=== PATIENT | female | born 1935 | race Caucasian/White ===

== ENCOUNTER → 2020-05-24 | Outpatient (CLI) | payer MEDICARE | END | disposition home or self-care (01) | LOC: LABWHC1 09:31 | PROVIDERS: ATTEND Internal Medicine | DX: Z20.828 Contact with and (suspected) exposure to other viral communicable diseases (principal) | CPT/HCPCS: U0003; C9803 ==

== ENCOUNTER → 2020-09-07 | Outpatient (CLI) | payer MEDICARE ==
--- NOTE | 2020-09-07 14:10 | CT ---
EXAMINATION TYPE: CT abdomen pelvis w con DATE OF EXAM: 09/07/2020 HISTORY: left flank pain CT DLP: 660mGycm Automated Exposure Control for Dose Reduction was Utilized. CONTRAST: CT scan of the abdomen and pelvis is performed with IV Contrast, patient injected with 80 mL of Isovu e 300. COMPARISON: None. FINDINGS: LUNG BASES: No significant abnormality is appreciated. LIVER/GB: No significant abnormality is appreciated. PANCREAS: No significant abnormality is seen. SPLEEN: No significant abnormality is seen. ADRENALS: No significant abnormality is seen. KIDNEYS: Cortical thinning in both kidneys with scattered simple-appearing thin-walled cysts of varyi ng size and shape. Findings consistent with product of chronic medical renal disease. No hydronephros is noted bilaterally. Mild to moderate concentric wall thickening in the bladder. Early excretion of contrast makes evaluation for calculi suboptimal. Patient had extravasation accounting for findings. BOWEL: Oral contrast reaches level of the sigmoid rectal colon. No suspicious small or large bowel di latation. UTERUS/ADNEXA: Uterus surgically absent. LYMPH NODES: No greater than 1cm abdominal or pelvic lymph nodes are appreciated. OSSEOUS STRUCTURES: Severe sclerotic compression fracture Involving T11 vertebra. Cannot exclude path ologic fracture given this finding, correlate clinically. No significant posterior retropulsion noted . Mild height loss with vertebroplasty L5 vertebra. OTHER: Moderate calcified plaque of the aorta extends into branch vessels. IMPRESSION: No hydronephrosis seen bilaterally. Possible acute cystitis, correlate clinically. Attent ion to T11 vertebra as detailed above.
== END | disposition home or self-care (01) ==
LOC: RADCTMAIN 11:08
PROVIDERS: ATTEND Internal Medicine
DX: R10.9 Unspecified abdominal pain (principal)
CPT/HCPCS: 82565; 84520; 74177; 36415; Q9967

== ENCOUNTER → 2021-04-25 | Outpatient (CLI) | payer MEDICARE ==
--- NOTE | 2021-04-26 07:35 | CT ---
EXAMINATION TYPE: CT abdomen wo con, CT abdomen pelvis w con DATE OF EXAM: 04/25/2021 HISTORY: Diarrhea and 32lb weight loss over past [address] DLP: 284.5 (accession [id number]), 724.1 (accession [id number]) mGycm. Automated Exposure Control for Dose Reduction was Utilized. TECHNIQUE: CT scan abdomen with oral but without IV contrast. CT scan of the abdomen and pelvis is p erformed with oral and IV contrast. Patient injected with 80 cc of Isovue-300 for the study. COMPARISON: CT abdomen and pelvis September 07, 2020 FINDINGS: LUNG BASES: No significant abnormality is appreciated. LIVER/GB: No new biliary dilatation. PANCREAS: No significant abnormality is seen. SPLEEN: No significant abnormality is seen. ADRENALS: No significant abnormality is seen. KIDNEYS: Noncontrast images show no renal calculi bilaterally. Postcontrast images show symmetric cor ticomedullary uptake and excretion without hydronephrosis seen bilaterally. There is redemonstration of some cortical thinning with a few scattered simple-appearing thin-walled cysts bilaterally, larges t cyst is exophytically from upper pole level left kidney measuring 4.9 cm similar to the prior. BOWEL: The oral contrast reaches level of terminal ileum making evaluation of distal bowel slightly s uboptimal. No suspicious small or large bowel dilatation. A few distal colonic diverticula. No CT christiano dence for acute diverticulitis. Multiple air-fluid levels and abnormal fluid in the right and transve rse colon. GENITAL ORGANS: Uterus surgically absent or markedly atrophic.. LYMPH NODES: No greater than 1cm abdominal or pelvic lymph nodes are appreciated. OSSEOUS STRUCTURES: Vertebroplasty at L5 level redemonstrated. Osseous structures are demineralized. Advanced compression type fracture at T11 level with sclerosis redemonstrated. Slight posterior retro pulsion into anterior spinal canal sagittal image 60 series 15 redemonstrated. OTHER: Moderate to severe calcified plaque of the aorta extends into branch vessels. IMPRESSION: 1. Abnormal fluid in the right and transverse colon consistent with patient's reported history of arnaud rrhea. 2. No suspicious new mass or adenopathy to suggest neoplasm.
== END | disposition home or self-care (01) ==
LOC: RADCTMAIN 15:43
PROVIDERS: ATTEND Internal Medicine
DX: R10.84 Generalized abdominal pain (principal); R63.4 Abnormal weight loss
CPT/HCPCS: 82565; 84520; 74150; 74177; 36415; Q9967 ×2

== ENCOUNTER 2021-11-30 13:50 | Inpatient (IN) | payer MEDICARE ==
[2021-11-30] MEDS ORDERED: DIPH,PERTUS(ACELL)TETVAC-LF 0.5 ML VIAL IM ONE (13:58)
[2021-11-30] MEDS ORDERED: LIDOCAINE 1% INJ 10MG/ML (5 ML VIAL-PF) SQ ONE (13:58)
[2021-11-30] MEDS ORDERED: KETOROLAC 15 MG/ML 1 ML VIAL IVP STA (14:02)
--- NOTE | 2021-11-30 14:02 | ED ---
General Adult HPI <Abraham Harrington - Last Filed: 11/30/21 14:59> - General Source: patient, RN notes reviewed, old records reviewed <Torito Turner - Last Filed: 11/30/21 16:52> - General Stated complaint: Fall/hip pain Time Seen by Provider: 11/30/21 13:50 - History of Present Illness Initial comments: This is an 86-year-old female who states she was about to go up some steps and she turned to do that and she fell over onto her left side. Patient states she hit her head but did not lose consciousness and was not dazed. Patient states she has chronic neck pain but she doesn't believe she has any new neck pain. Patient also states she hit her elbow but it does not hurt but she did have some bleeding from the elbow. Patient complains mostly of right lateral hip and pe lvis pain. Patient denies any knee pain or ankle pain and denies any other pain to any other extremity. Patient denies any back pain or chest pain (Torito Turner) - Related Data Home Medications Medication Instructions Recorded Confirmed Aspirin EC [Ecotrin Low Dose] 81 mg PO DAILY 11/30/21 11/30/21 Calcium Carbonate [Calcium] 600 mg PO DAILY 11/30/21 11/30/21 Cholecalciferol [Vitamin D3 (25 25 mcg PO DAILY 11/30/21 11/30/21 Mcg = 1000 Iu)] Diphenox-Atrop 2.5-0.025 mg 1 tab PO BID PRN 11/30/21 11/30/21 [Lomotil] HYDROcodone/APAP 10-325MG [[place] 1 tab PO Q8HR PRN 11/30/21 11/30/21 10-325] Isosorbide Mononitrate ER [Imdur] 30 mg PO DAILY 11/30/21 11/30/21 Losartan Potassium [Cozaar] 12.5 mg PO DAILY 11/30/21 11/30/21 Omeprazole 20 mg PO DAILY 11/30/21 11/30/21 Sertraline [Zoloft] 50 mg PO DAILY 11/30/21 11/30/21 Simvastatin [Zocor] 20 mg PO HS 11/30/21 11/30/21 amLODIPine [Norvasc] 10 mg PO DAILY 11/30/21 11/30/21 calcium polycarbophiL [Fibercon] 625 mg PO BID PRN 11/30/21 11/30/21 Allergies Allergy/AdvReac Type Severity Reaction Status Date / Time No Known Allergies Allergy Verified 11/30/21 15:56 Review of Systems ROS Other: All systems not noted in ROS Statement are negative. <Abraham Harrington - Last Filed: 11/30/21 14:59> ROS Other: All systems not noted in ROS Statement are negative. <Torito Turner - Last Filed: 11/30/21 16:52> ROS Statement: Those systems with pertinent positive or pertinent negative responses have been documented in the HPI. General Exam <Torito Turner - Last Filed: 11/30/21 16:52> - General Exam Comments Initial Comments: GENERAL: Patient is well-developed and well-nourished. Patient is nontoxic and well-hydrated and is in mild distress. Patient has mild tenderness to the temporal region of his scalp on the left ENT: Neck is soft and supple. No significant lymphadenopathy is noted. Oropharynx is clear. Moist mucous membranes. Neck has full range of motion without eliciting any pain. EYES: The sclera were anicteric and conjunctiva were pink and moist. Extraocular movements were intact and pupils were equal round and reactive to light. Eyelids were unremarkable. PULMONARY: Unlabored respirations. Good breath sounds bilaterally. No audible rales rhonchi or wheezing was noted. CARDIOVASCULAR: There is a regular rate and rhythm without any murmurs gallops or rubs. ABDOMEN: Soft and nontender with normal bowel sounds. SKIN: Patient has a 3 center laceration to the back of the left elbow. NEUROLOGIC: Patient is alert and oriented x3. Cranial nerves II through XII are grossly intact. Motor and sensory are also intact. Normal speech, volume and content. Symmetrical smile. MUSCULOSKELETAL: Patient is quite a bit of pain in the lateral aspect of the left hip patient has no spinous process tenderness in the lumbar or thoracic regions. LYMPHATICS: No significant lymphadenopathy is noted PSYCHIATRIC: Normal psychiatric evaluation. (Torito Turner) Course Vital Signs 11/30/21 11/30/21 11/30/21 13:55 14:10 16:44 Temperature 97.8 F Pulse Rate 86 83 58 L Respiratory 18 18 18 Rate Blood Pressure 157/63 142/60 153/43 O2 Sat by Pulse 98 96 95 Oximetry Procedures - Laceration Laceration #1 Consent Obtained: verbal consent Indication: laceration Site: upper extremity (elbow left) Size (cm): 3 Description: linear Depth: simple, single layer Anesthetic Used: lidocaine 1% Anesthesia Technique: local infiltration Pre-repair: irrigated extensively Type of Sutures: nylon Size of Sutures: 4-0 Number of Sutures: 5 Technique: simple, interrupted Patient Tolerated Procedure: well, no complications <Abraham Harrington - Last Filed: 11/30/21 14:59> Medical Decision Making <Torito Turner - Last Filed: 11/30/21 16:52> - Medical Decision Making CT of the head and neck show no acute abnormality. X-ray of the pelvis shows a pubic rami fracture. CT of the hip was done because the patient was unable to ambulate initially pubic rim or fracture as well as ischial fracture that may extend the acetabulum I [facility] with [facility] and she agreed to admit the patient admitted the patient wrote admitting orders. (Torito Turner) Disposition <Abraham Harrington - Last Filed: 11/30/21 14:59> Time of Disposition: 16:52 <Torito Turner - Last Filed: 11/30/21 16:52> Clinical Impression: Left ischial fracture, Pubic ramus fracture, Fall Disposition: ADMITTED IP TO THIS HOSP Referrals: Cindy Berg MD [Primary Care Provider] - 1-2 days
--- NOTE | 2021-11-30 14:32 | XR ---
Left hip HISTORY: Trauma and pain 2 views the left hip There is a fracture through the inferior pubic ramus on the left and possibly on the right. Bone mine ralization is low and may reduce sensitivity. Vertebroplasty changes noted in the lower lumbar spine. Left hip shows no definite fracture, there is no dislocation. IMPRESSION: Pubic rami fractures suspected. Technique somewhat limits the exam.
--- NOTE | 2021-11-30 15:02 | CT ---
EXAMINATION TYPE: CT brain kehindeine wo con DATE OF EXAM: 11/30/2021 COMPARISON: None HISTORY: fall CT DLP: 1469.7 mGycm, Automated exposure control for dose reduction was used. CONTRAST: None CT of the brain is performed utilizing 3 mm thick sections through the posterior fossa and 3 mm thick sections through the remaining calvarium. Study is performed within 24 hours of arrival to the hospital. No abnormal hyperdensity is present to suggest an acute intracranial hemorrhage. No mass lesion is evident. No acute infarcts are evident. There is confluent periventricular white matter hypodensity, likely o n the basis of chronic white matter ischemic changes. Follow-up MRI can be performed as clinically in dicated. Ventricles and sulci are appropriate for the patient age. Paranasal sinuses and mastoid air cells within the [id number] are clear. IMPRESSIONS: 1. Acute posttraumatic intracranial changes. MRI can be performed as clinically indicated. 2. Chronic appearing confluent periventricular white matter ischemic changes. CT cervical spine. COMPARISON: None CT of the cervical spine is performed in the axial plane at 2 mm thick sections. Reconstructed image s in the coronal, and sagittal plane are reviewed on the computer. No acute fractures are evident. Vertebral body alignment is normal. There is loss of disc height throughout the cervical spine greatest at C3-4 C5-6 and C6-7. Anterior v ertebral body spurring is present C5 and C6. Minimal anterior listhesis of C3 on C4 may be present. Vertebral body heights are preserved. No spinal canal stenosis is evident. No neural foraminal stenosis is evident. IMPRESSIONS: 1. Degenerative disc changes cervical spine.
--- NOTE | 2021-11-30 16:29 | CT ---
EXAMINATION TYPE: CT hip LT wo con DATE OF EXAM: 11/30/2021 COMPARISON: None HISTORY: left hip pain following fall CT DLP: 543.1 mGycm Automated exposure control for dose reduction was used. Contrast: None Technique: Axial images 3 mm thick sections. Reconstructed images in the coronal and sagittal planes. FINDINGS: Left hip: Femoral head articulates with the acetabulum. Femoral neck and proximal left femur appear i ntact. Multiple pelvic fractures are evident. There is likely a fracture through the anterior column. There may be a extension into the acetabulum. Example image 201 image 26. Within the [id number] is a fr acture of the medial left ischio ramus. This is better visualized on the coronal plane images there i s a comminuted fracture of the mid to medial pubic ramus. This appears comminuted. IMPRESSION: 1. MULTIPLE ISCHIAL AND PUBIC RAMI FRACTURES DISCUSSED ABOVE AT THE LEFT HIP.
[2021-11-30] MEDS ORDERED: HYDROmorphone 0.5 MG/0.5 ML SYRINGE IVP STA (16:43)
[2021-11-30] MEDS: KETOROLAC 15 MG/ML 1 ML VIAL IVP SCH ×2 (19:05→23:14)
[2021-11-30] MEDS: HYDROmorphone 0.5 MG/0.5 ML SYRINGE IVP PRN (22:02)
[2021-12-01] MEDS: KETOROLAC 15 MG/ML 1 ML VIAL IVP SCH ×3 (06:28→18:30)
[2021-12-01] MEDS ORDERED: DIPHENOX-ATROP 2.5-0.025 MG 1 EACH TAB PO PRN (06:43)
[2021-12-01] MEDS: CALCIUM CARBONATE 500 MG CHEWABLE PO SCH (08:01)
[2021-12-01] MEDS: amLODIPine 10 MG TAB PO SCH (08:02)
[2021-12-01] MEDS: CHOLECALCIFEROL 25 MCG (1000 IU) TABLET PO SCH (08:02)
[2021-12-01] MEDS: LOSARTAN 25 MG TAB PO SCH (08:02)
[2021-12-01] MEDS: SERTRALINE 50 MG TAB PO SCH (08:02)
[2021-12-01] MEDS: ASPIRIN 81 MG PO SCH (08:02)
[2021-12-01] MEDS: PANTOPRAZOLE 40 MG TABLET PO SCH (08:02)
[2021-12-01] MEDS: ISOSORBIDE MONONITRATE ER 30 MG TAB.ER.24H PO SCH (08:02)
[2021-12-01] MEDS ORDERED: ONDANSETRON 4 MG/2 ML VIAL IVP PRN (08:06)
--- NOTE | 2021-12-01 09:27 | P.HPOR ---
History of Present Illness H&P Date: 12/01/21 Chief Complaint: Pubic rami fractures The patient is an 86 y/o female with a past medical history that includes hypertension, sleep apnea, and osteoarthritis, who presented the emergency department yesterday afternoon after sustaining a fall outside of her home. The patient does live alone and her last March. She uses a cane and a walker at home regularly but was not using them when she fell. She had immediate pain and inability to walk on the left leg. X-rays in the ER revealed ischial and pubic rami fractures. A hip CT was performed due to severe pain in the left hip, that revealed nondisplaced extension into the acetabulum. The patient was admitted to orthopedics for pain control and placement to skilled rehab. Review of Systems Constitutional: Denies chills, Denies fatigue, Denies fever Cardiovascular: Denies chest pain, Denies shortness of breath Respiratory: Denies cough Gastrointestinal: Denies diarrhea, Denies nausea, Denies vomiting Musculoskeletal: left: hip pain, hip stiffness Past Medical History Past Medical History: Hypertension, Osteoarthritis (OA), Sleep Apnea/CPAP/BIPAP Additional Past Medical History / Comment(s): Sleep apnea, History of Any Multi-Drug Resistant Organisms: None Reported Additional Past Surgical History / Comment(s): Neck surgery Past Anesthesia/Blood Transfusion Reactions: No Reported Reaction Past Psychological History: Anxiety Smoking Status: Former smoker Past Alcohol Use History: Occasional Past Drug Use History: None Reported Medications and Allergies Home Medications Medication Instructions Recorded Confirmed Type Aspirin EC [Ecotrin Low Dose] 81 mg PO DAILY 11/30/21 11/30/21 History Calcium Carbonate [Calcium] 600 mg PO DAILY 11/30/21 11/30/21 History Cholecalciferol [Vitamin D3 (25 25 mcg PO DAILY 11/30/21 11/30/21 History Mcg = 1000 Iu)] Diphenox-Atrop 2.5-0.025 mg 1 tab PO BID PRN 11/30/21 11/30/21 History [Lomotil] HYDROcodone/APAP 10-325MG [[place] 1 tab PO Q8HR PRN 11/30/21 11/30/21 History 10-325] Isosorbide Mononitrate ER [Imdur] 30 mg PO DAILY 11/30/21 11/30/21 History Losartan Potassium [Cozaar] 12.5 mg PO DAILY 11/30/21 11/30/21 History Omeprazole 20 mg PO DAILY 11/30/21 11/30/21 History Sertraline [Zoloft] 50 mg PO DAILY 11/30/21 11/30/21 History Simvastatin [Zocor] 20 mg PO HS 11/30/21 11/30/21 History amLODIPine [Norvasc] 10 mg PO DAILY 11/30/21 11/30/21 History calcium polycarbophiL [Fibercon] 625 mg PO BID PRN 11/30/21 11/30/21 History Allergies Allergy/AdvReac Type Severity Reaction Status Date / Time No Known Allergies Allergy Verified 11/30/21 15:56 Physical Examination The patient is a 86 year old female that is no acute distress. She is alert and oriented x3. The patient's head is normocephalic and atraumatic. Exam of the cervical spine reveals no pain upon palpation or range of motion. Exam of the bilateral upper extremities reveal no obvious deformities or pain upon range of motion. There is a skin tear on the left elbow with sutures present. Exam of the right lower extremity reveals no pain upon palpation. Exam of the left lower extremity reveals no obvious deformity. There is pain upon palpation to the lateral left hip. There is minimal pain upon logrolling and any range of motion of the leg. Minimal pain to the left side on lateral compression of the pelvis bilaterally. No pain on AP compression. Bilateral calves are soft and nontender. Patient has good foot and ankle motion bilaterally. Neurological and circulatory status is intact. Results X-rays of the left hip and CT of the left hip reveal left ischial and pubic rami fractures that are nondisplaced. There is an extension into the left acetabulum. Assessment and Plan (1) Fall Current Visit: Yes Status: Acute Code(s): W19.XXXA - UNSPECIFIED FALL, INITIAL ENCOUNTER SNOMED Code(s): 1894015 (2) Left ischial fracture Current Visit: Yes Status: Acute Code(s): S32.602A - UNSP FRACTURE OF LEFT ISCHIUM, INIT FOR CLOS FX SNOMED Code(s): 565167824 (3) Pubic ramus fracture Current Visit: Yes Status: Acute Code(s): S32.599A - OTH FRACTURE OF UNSP PUBIS, INIT ENCNTR FOR CLOSED FRACTURE SNOMED Code(s): 15858131 Plan: The clinical and x-ray findings were discussed with the patient. The case was discussed with Dr. Harris. The patient was admitted for pain control and possible skilled rehab placement. She is currently on [place] 10, Toradol, and Dilaudid. She does take [place] 10 at home. She may toe touch weightbear on the left leg with a walker. PT and OT have been ordered. Case management and social work are working on placement. We will continue to monitor closely and make further recommendations as needed.
--- NOTE | 2021-12-01 14:03 | P.HPIM ---
History of Present Illness H&P Date: 12/01/21 Maggy Voss, is an 86-year-old female who presented to [facility] emergency room after sustaining a fall and having hip pain, patient states that she was walking up a few steps to her front door when she tripped and fell down, she denies any dizziness or loss of consciousness, she states that she hit her head on the cement, but did not lose consciousness, she was able to crawl into the house and called her son for help. She was evaluated in the emergency room vital examination on presentation revealed a temperature of 97.8 pulse 86 respiration 18 and blood pressure 157/63 pulse ox 98% on room air Laboratory data no labs were drawn in the emergency room Testing in the emergency room revealed computed tomography scan of the brain did not reveal any evidence of intracranial bleeding, computed tomography scan of the left hip revealed multiple ischial pubic rami fractures Patient was admitted to medical floor for further evaluation and treatment Past medical history is significant for history of hypertension, history of hyperlipidemia, history of coronary artery disease, history of gastroesophageal reflux disease, history of depression maintained on Zoloft On review of systems patient is alert and oriented 3 in no apparent distress she is complaining of generalized pain and pain in the left hip and left elbow otherwise she denies any complaints there is no fever or chills no headache or dizziness no chest pain no shortness of breath no cough no nausea or vomiting no abdominal pain no diarrhea no blood in the stools no burning with urination no frequency or urgency and no hematuria Past Medical History Past Medical History: Hypertension, Osteoarthritis (OA), Sleep Apnea/CPAP/BIPAP Additional Past Medical History / Comment(s): Sleep apnea, History of Any Multi-Drug Resistant Organisms: None Reported Additional Past Surgical History / Comment(s): Neck surgery Past Anesthesia/Blood Transfusion Reactions: No Reported Reaction Past Psychological History: Anxiety Smoking Status: Former smoker Past Alcohol Use History: Occasional Past Drug Use History: None Reported Medications and Allergies Home Medications Medication Instructions Recorded Confirmed Type Aspirin EC [Ecotrin Low Dose] 81 mg PO DAILY 11/30/21 11/30/21 History Calcium Carbonate [Calcium] 600 mg PO DAILY 11/30/21 11/30/21 History Cholecalciferol [Vitamin D3 (25 25 mcg PO DAILY 11/30/21 11/30/21 History Mcg = 1000 Iu)] Diphenox-Atrop 2.5-0.025 mg 1 tab PO BID PRN 11/30/21 11/30/21 History [Lomotil] HYDROcodone/APAP 10-325MG [[place] 1 tab PO Q8HR PRN 11/30/21 11/30/21 History 10-325] Isosorbide Mononitrate ER [Imdur] 30 mg PO DAILY 11/30/21 11/30/21 History Losartan Potassium [Cozaar] 12.5 mg PO DAILY 11/30/21 11/30/21 History Omeprazole 20 mg PO DAILY 11/30/21 11/30/21 History Sertraline [Zoloft] 50 mg PO DAILY 11/30/21 11/30/21 History Simvastatin [Zocor] 20 mg PO HS 11/30/21 11/30/21 History amLODIPine [Norvasc] 10 mg PO DAILY 11/30/21 11/30/21 History calcium polycarbophiL [Fibercon] 625 mg PO BID PRN 11/30/21 11/30/21 History Allergies Allergy/AdvReac Type Severity Reaction Status Date / Time No Known Allergies Allergy Verified 11/30/21 15:56 Physical Exam Vitals: Vital Signs Temp Pulse Pulse Resp BP BP Pulse Ox 12/01/21 08:32 98.7 F 86 16 111/56 97 12/01/21 01:58 98.9 F 89 20 101/58 95 11/30/21 19:12 20 11/30/21 18:56 98.2 F 64 24 148/63 94 L 11/30/21 18:21 98.7 F 64 20 148/67 95 11/30/21 16:44 58 L 18 153/43 95 11/30/21 14:10 83 18 142/60 96 11/30/21 13:55 97.8 F 86 18 157/63 98 Intake and Output 11/30/21 12/01/21 12/01/21 22:59 06:59 14:59 Intake Total 0 Balance 0 Intake: Oral 0 Other: Voiding Method Bedside Commode Bedside Commode Diaper Diaper # Voids 1 1 Weight 68.039 kg In general patient is alert and oriented x 3 in no distress HEENT head normocephalic and atraumatic Neck is supple no JVD no goiter no lymphadenopathy no carotid bruit Chest examination is clear to auscultation no crackles no wheezing Cardiac exam reveals regular heart sounds S1 and S2 no gallops no murmurs Abdomen is soft nontender no organomegaly with normal bowel sounds Extremity exam reveals no edema no cyanosis or clubbing, injury with sutures on the left elbow Neurological examination reveals no gross focal deficits Thrombosis Risk Factor Assmnt - Choose All That Apply Each Risk Factor Represents 3 Points: Age 75 years or older Thrombosis Risk Factor Assessment Total Risk Factor Score: 3 Thrombosis Risk Factor Assessment Level: Moderate Risk Assessment and Plan Plan: Fall was evidence of multiple ischial and pubic rami fracture Underlying history of hypertension Underlying history of hyperlipidemia Underlying history of coronary artery disease Underlying history of gastroesophageal reflux disease Underlying history of depression At this time patient is admitted to medical floor, orthopedic surgery following CBC CMP and urine analysis were ordered Home medications reviewed and reordered For DVT prophylaxis subcu Lovenox For GI prophylaxis continue omeprazole Physical therapy and occupational therapy Patient will need rehab prior to going home
[2021-12-01 14:27] LABS: Basophils # (A) 0.1 k/uL (0-0.2); Basophils % (A) 1 %; Eosinophils # (A) 0.1 k/uL (0-0.7); Eosinophils % (A) 1 %; HCT 30.1 % (34.0-46.0); Lymphocytes # (A) 1.1 k/uL (1.0-4.8); Lymphocytes % (A) 12 %; MCH 33.2 pg (25.0-35.0); MCHC 33.3 g/dL (31.0-37.0); MCV 99.8 fL (80.0-100.0); Mean Platelet Volume 8.1; Monocytes # (A) 0.4 k/uL (0-1.0); Monocytes % (A) 5 %; Neutrophils # (A) 6.9 k/uL (1.3-7.7); Neutrophils % (A) 80 %; Platelet Count 128 k/uL (150-450); RBC 3.01 m/uL (3.80-5.40); RDW 12.6 % (11.5-15.5); WBC 8.7 k/uL (3.8-10.6)
[2021-12-01 15:05] LABS: ALT 21 U/L (4-34); AST 37 U/L (14-36); African American GFR (CKD) 45 (>60 ml/min/1.73 sqM); Albumin 3.5 g/dL (3.5-5.0); Albumin/Globulin Ratio 1.6; Alkaline Phosphatase 61 U/L (38-126); Anion Gap 7 mmol/L; Blood Urea Nitrogen 25 mg/dL (7-17); Calcium 8.3 mg/dL (8.4-10.2); Carbon Dioxide 19 mmol/L (22-30); Chloride 105 mmol/L (98-107); Globulin 2.2 g/dL; Glucose 126 mg/dL (74-99); Non-African American GFR(CKD) 39 (>60 ml/min/1.73 sqM); Potassium 4.1 mmol/L (3.5-5.1); Sodium 131 mmol/L (137-145); Total Bilirubin 1.1 mg/dL (0.2-1.3); Total Protein 5.7 g/dL (6.3-8.2)
[2021-12-01] MEDS: HYDROmorphone 0.5 MG/0.5 ML SYRINGE IVP PRN ×2 (15:18→22:12)
[2021-12-01 18:19] LABS: Appearance,Urine Clear (Clear); Bilirubin,Urine Negative (Negative); Blood,Urine Negative (Negative); Color,Urine Yellow; Glucose,Urine (UA) Negative (Negative); Ketones,Urine Negative (Negative); Leukocyte Esterase,Urine Negative (Negative); Nitrite,Urine Negative (Negative); PH, Urine 5.5 (5.0-8.0); Protein,Urine Negative (Negative); Urobilinogen,Urine <2.0 mg/dL (<2.0)
[2021-12-01] MEDS: HYDROcodone/APAP 10-325MG 1 EACH TAB PO PRN (20:34)
[2021-12-01] MEDS: ATORVASTATIN 10 MG TAB PO SCH (21:39)
[2021-12-02] MEDS: KETOROLAC 15 MG/ML 1 ML VIAL IVP SCH ×4 (00:55→17:19)
[2021-12-02] MEDS: ASPIRIN 81 MG PO SCH (08:07)
[2021-12-02] MEDS: ISOSORBIDE MONONITRATE ER 30 MG TAB.ER.24H PO SCH (08:07)
[2021-12-02] MEDS: PANTOPRAZOLE 40 MG TABLET PO SCH (08:07)
[2021-12-02] MEDS: CALCIUM CARBONATE 500 MG CHEWABLE PO SCH (08:07)
[2021-12-02] MEDS: SERTRALINE 50 MG TAB PO SCH (08:07)
[2021-12-02] MEDS: LOSARTAN 25 MG TAB PO SCH (08:08)
[2021-12-02] MEDS: CHOLECALCIFEROL 25 MCG (1000 IU) TABLET PO SCH (08:08)
[2021-12-02] MEDS: amLODIPine 10 MG TAB PO SCH (08:08)
[2021-12-02] MEDS: HYDROcodone/APAP 10-325MG 1 EACH TAB PO PRN ×2 (08:29→20:51)
[2021-12-02 09:31] LABS: African American GFR (CKD) 51.9 (60.0-200.0); Albumin 3.5 g/dL (3.8-4.9); Albumin/Globulin Ratio 2.19 (1.60-3.17); Anion Gap 8.2 mmol/L (10.00-18.00); BUN/Creat Ratio 21.45 Ratio (12.00-20.00); Blood Urea Nitrogen 23.6 mg/dL (9.0-27.0); Calcium 8.3 mg/dL (8.7-10.3); Carbon Dioxide 19.8 mmol/L (20.0-27.5); Globulin 1.6 g/dL (1.6-3.3); Non-African American GFR(CKD) 44.8 (60.0-200.0); Potassium 4.5 mmol/L (3.5-5.5); Total Bilirubin 0.7 mg/dL (0.30-1.20); Total Protein 5.1 g/dL (6.2-8.2)
[2021-12-02 10:42] LABS: Basophils # (A) 0.03 X 10*3/uL (0.00-0.10); Basophils % (A) 0.4 %; Eosinophils # (A) 0.27 X 10*3/uL (0.04-0.35); Eosinophils % (A) 3.6 %; HGB 9.1 g/dL (12.0-15.0); Immature Grans, Automated 0.7 %; Lymphocytes # (A) 1.98 X 10*3/uL (0.90-5.00); Lymphocytes % (A) 26.3 %; MCH 32.2 pg (27.0-32.0); MCHC 32.5 g/dL (32.0-37.0); MCV 98.9 fL (80.0-97.0); Mean Platelet Volume 11.2 fL (9.5-12.2); Monocytes # (A) 0.61 X 10*3/uL (0.20-1.00); Monocytes % (A) 8.1 %; NRBC Per 100 WBC 0 /100 WBCS (0.0-0.0); Neutrophils # (A) 4.59 X 10*3/uL (1.80-7.70); Neutrophils % (A) 60.9 %; Platelet Count 107 X 10*3/uL (140-440); RBC 2.83 X 10*6/uL (4.10-5.20); RDW 12.6 % (11.5-14.5); WBC 7.53 X 10*3/uL (4.50-10.00)
--- NOTE | 2021-12-02 12:43 | P.PN ---
Subjective Progress Note Date: 12/02/21 Maggy Voss, is an 86-year-old female who presented to [facility] emergency room after sustaining a fall and having hip pain, patient states that she was walking up a few steps to her front door when she tripped and fell down, she denies any dizziness or loss of consciousness, she states that she hit her head on the cement, but did not lose consciousness, she was able to crawl into the house and called her son for help. She was evaluated in the emergency room vital examination on presentation revealed a temperature of 97.8 pulse 86 respiration 18 and blood pressure 157/63 pulse ox 98% on room air Laboratory data no labs were drawn in the emergency room Testing in the emergency room revealed computed tomography scan of the brain did not reveal any evidence of intracranial bleeding, computed tomography scan of the left hip revealed multiple ischial pubic rami fractures Patient was admitted to medical floor for further evaluation and treatment Past medical history is significant for history of hypertension, history of hyperlipidemia, history of coronary artery disease, history of gastroesophageal reflux disease, history of depression maintained on Zoloft On review of systems patient is alert and oriented 3 in no apparent distress she is complaining of generalized pain and pain in the left hip and left elbow otherwise she denies any complaints there is no fever or chills no headache or dizziness no chest pain no shortness of breath no cough no nausea or vomiting no abdominal pain no diarrhea no blood in the stools no burning with urination no frequency or urgency and no hematuria On 12/02/2021 patient was seen and examined on the medical floor she is alert and oriented 3 in no apparent distress there is no fever or chills no headache or dizziness no chest pain no shortness of breath no cough no nausea or vomiting no abdominal pain no diarrhea no burning with urination no frequency or urgency and no hematuria she is sitting up in a chair her pain is well-controlled. Objective - Vital Signs Vital signs: Vital Signs Temp 98.4 F 12/02/21 08:00 Pulse 78 12/02/21 02:00 Resp 20 12/02/21 02:00 BP 138/60 12/02/21 08:00 Pulse Ox 97 12/02/21 08:00 FiO2 Intake & Output 12/01/21 12/02/21 12/02/21 18:59 06:59 18:59 Output Total 150 Balance -150 Output: Emesis 150 Other: Voiding Method Bedside Commode Bedside Commode Diaper Diaper # Voids 2 1 - Exam In general patient is alert and oriented x 3 in no distress HEENT head normocephalic and atraumatic Neck is supple no JVD no goiter no lymphadenopathy no carotid bruit Chest examination is clear to auscultation no crackles no wheezing Cardiac exam reveals regular heart sounds S1 and S2 no gallops no murmurs Abdomen is soft nontender no organomegaly with normal bowel sounds Extremity exam reveals no edema no cyanosis or clubbing, injury with sutures on the left elbow Neurological examination reveals no gross focal deficits - Labs CBC & Chem 7: 12/02/21 05:55 12/02/21 05:55 Labs: Abnormal Lab Results - Last 24 Hours (Table) 12/01/21 12/01/21 12/02/21 Range/Units 14:05 14:05 05:55 RBC 3.01 L 2.83 L (3.80-5.40) m/uL Hgb 10.0 L 9.1 L (11.4-16.0) gm/dL Hct 30.1 L 28.0 L (34.0-46.0) % MCV 98.9 H (80.0-97.0) fL MCH 32.2 H (27.0-32.0) pg Plt Count 128 L 107 L (150-450) k/uL Immature Gran # 0.05 H (0.00-0.04) X 10*3/uL Sodium 131 L (137-145) mmol/L Carbon Dioxide 19 L (22-30) mmol/L Anion Gap (10.00-18.00) mmol/L BUN 25 H (7-17) mg/dL Creatinine 1.24 H (0.52-1.04) mg/dL Est GFR (CKD-EPI)AfAm (60.0-200.0) Est GFR (CKD-EPI)NonAf (60.0-200.0) BUN/Creatinine Ratio (12.00-20.00) Ratio Glucose 126 H (74-99) mg/dL Calcium 8.3 L (8.4-10.2) mg/dL AST 37 H (14-36) U/L Total Protein 5.7 L (6.3-8.2) g/dL Albumin (3.8-4.9) g/dL 12/02/21 Range/Units 05:55 RBC (3.80-5.40) m/uL Hgb (11.4-16.0) gm/dL Hct (34.0-46.0) % MCV (80.0-97.0) fL MCH (27.0-32.0) pg Plt Count (150-450) k/uL Immature Gran # (0.00-0.04) X 10*3/uL Sodium (137-145) mmol/L Carbon Dioxide 19.8 L (22-30) mmol/L Anion Gap 8.20 L (10.00-18.00) mmol/L BUN (7-17) mg/dL Creatinine (0.52-1.04) mg/dL Est GFR (CKD-EPI)AfAm 51.9 L (60.0-200.0) Est GFR (CKD-EPI)NonAf 44.8 L (60.0-200.0) BUN/Creatinine Ratio 21.45 H (12.00-20.00) Ratio Glucose (74-99) mg/dL Calcium 8.3 L (8.4-10.2) mg/dL AST (14-36) U/L Total Protein 5.1 L (6.3-8.2) g/dL Albumin 3.5 L (3.8-4.9) g/dL Assessment and Plan Plan: Fall was evidence of multiple ischial and pubic rami fracture Underlying history of hypertension Underlying history of hyperlipidemia Underlying history of coronary artery disease Underlying history of gastroesophageal reflux disease Underlying history of depression At this time patient is admitted to medical floor, orthopedic surgery following CBC CMP and urine analysis were ordered Home medications reviewed and reordered For DVT prophylaxis subcu Lovenox For GI prophylaxis continue omeprazole Physical therapy and occupational therapy Patient will need rehab prior to going home
[2021-12-02] MEDS ORDERED: ENOXAPARIN 40 MG/0.4 ML SYRINGE SQ SCH (12:45)
--- NOTE | 2021-12-02 16:54 | P.PN ---
Subjective Progress Note Date: 12/02/21 Principal diagnosis: Pubic rami/ischial tuberosity fracture Patient is pleasant 86 yo female seen at bedside this am. We are following for pubic ramii and ischial tuberosity fractures. She is awaiting ECF placeent. She has no complaints today. Objective - Vital Signs Vital signs: Vital Signs Temp 98.4 F 12/02/21 08:00 Pulse 78 12/02/21 02:00 Resp 20 12/02/21 02:00 BP 138/60 12/02/21 08:00 Pulse Ox 97 12/02/21 08:00 FiO2 Intake & Output 12/01/21 12/02/21 12/02/21 18:59 06:59 18:59 Intake Total 296 Output Total 150 Balance -150 296 Intake: Oral 296 Output: Emesis 150 Other: Voiding Method Bedside Commode Bedside Commode Diaper Diaper # Voids 2 1 - Exam Neurovascular status is intact throughout the lower extremities with motor and sensation fully intact. Calves are soft and nontender. 2+ dorsalis pedis pulse and less than 2 second cap refill is present. - Constitutional General appearance: Present: no acute distress - Labs CBC & Chem 7: 12/02/21 05:55 12/02/21 05:55 Labs: Abnormal Lab Results - Last 24 Hours (Table) 12/01/21 12/01/21 12/02/21 Range/Units 14:05 14:05 05:55 RBC 3.01 L 2.83 L (3.80-5.40) m/uL Hgb 10.0 L 9.1 L (11.4-16.0) gm/dL Hct 30.1 L 28.0 L (34.0-46.0) % MCV 98.9 H (80.0-97.0) fL MCH 32.2 H (27.0-32.0) pg Plt Count 128 L 107 L (150-450) k/uL Immature Gran # 0.05 H (0.00-0.04) X 10*3/uL Sodium 131 L (137-145) mmol/L Carbon Dioxide 19 L (22-30) mmol/L Anion Gap (10.00-18.00) mmol/L BUN 25 H (7-17) mg/dL Creatinine 1.24 H (0.52-1.04) mg/dL Est GFR (CKD-EPI)AfAm (60.0-200.0) Est GFR (CKD-EPI)NonAf (60.0-200.0) BUN/Creatinine Ratio (12.00-20.00) Ratio Glucose 126 H (74-99) mg/dL Calcium 8.3 L (8.4-10.2) mg/dL AST 37 H (14-36) U/L Total Protein 5.7 L (6.3-8.2) g/dL Albumin (3.8-4.9) g/dL /02/15 Range/Units 05:55 RBC (3.80-5.40) m/uL Hgb (11.4-16.0) gm/dL Hct (34.0-46.0) % MCV (80.0-97.0) fL MCH (27.0-32.0) pg Plt Count (150-450) k/uL Immature Gran # (0.00-0.04) X 10*3/uL Sodium (137-145) mmol/L Carbon Dioxide 19.8 L (22-30) mmol/L Anion Gap 8.20 L (10.00-18.00) mmol/L BUN (7-17) mg/dL Creatinine (0.52-1.04) mg/dL Est GFR (CKD-EPI)AfAm 51.9 L (60.0-200.0) Est GFR (CKD-EPI)NonAf 44.8 L (60.0-200.0) BUN/Creatinine Ratio 21.45 H (12.00-20.00) Ratio Glucose (74-99) mg/dL Calcium 8.3 L (8.4-10.2) mg/dL AST (14-36) U/L Total Protein 5.1 L (6.3-8.2) g/dL Albumin 3.5 L (3.8-4.9) g/dL Assessment and Plan (1) Left ischial fracture Narrative/Plan: She will continue with routine orthopedic protocol including pain management, PT, DVT prophylaxis and medical management. Expect that she will transfer to [facility] Saturday Current Visit: Yes Status: Acute Code(s): S32.602A - UNSP FRACTURE OF LEFT ISCHIUM, INIT FOR CLOS FX SNOMED Code(s): 899807361 (2) Pubic ramus fracture Current Visit: Yes Status: Acute Code(s): S32.599A - OTH FRACTURE OF UNSP PUBIS, INIT ENCNTR FOR CLOSED FRACTURE SNOMED Code(s): 09339310 Time with Patient: Less than 30
[2021-12-02] MEDS: ATORVASTATIN 10 MG TAB PO SCH (20:47)
[2021-12-03] MEDS: KETOROLAC 15 MG/ML 1 ML VIAL IVP SCH ×3 (00:20→12:57)
[2021-12-03] MEDS: LOSARTAN 25 MG TAB PO SCH (08:16)
[2021-12-03] MEDS: CHOLECALCIFEROL 25 MCG (1000 IU) TABLET PO SCH (08:16)
[2021-12-03] MEDS: ASPIRIN 81 MG PO SCH (08:17)
[2021-12-03] MEDS: CALCIUM CARBONATE 500 MG CHEWABLE PO SCH (08:17)
[2021-12-03] MEDS: ENOXAPARIN 30 MG/0.3 ML SYRINGE SQ SCH (08:17)
[2021-12-03] MEDS: ISOSORBIDE MONONITRATE ER 30 MG TAB.ER.24H PO SCH (08:17)
[2021-12-03] MEDS: PANTOPRAZOLE 40 MG TABLET PO SCH (08:17)
[2021-12-03] MEDS: amLODIPine 10 MG TAB PO SCH (08:17)
[2021-12-03] MEDS: SERTRALINE 50 MG TAB PO SCH (08:17)
--- NOTE | 2021-12-03 10:25 | P.PN ---
Subjective Progress Note Date: 12/03/21 Principal diagnosis: Pubic rami/ischial tuberosity fracture Patient is pleasant 86 yo female seen at bedside this am. We are following for pubic ramii and ischial tuberosity fractures. She is awaiting ECF placeent. She has no complaints today. Objective - Vital Signs Vital signs: Vital Signs Temp 97.9 F 12/03/21 08:00 Pulse 75 12/03/21 08:00 Resp 14 12/03/21 08:00 BP 114/66 12/03/21 08:00 Pulse Ox 95 12/03/21 08:00 FiO2 Intake & Output 12/02/21 12/03/21 12/03/21 18:59 06:59 18:59 Intake Total 888 Balance 888 Intake: Oral 888 Other: Voiding Method Bedside Commode Bedpan Diaper # Voids 3 1 - Exam Neurovascular status is intact throughout the lower extremities with motor and sensation fully intact. Calves are soft and nontender. 2+ dorsalis pedis pulse and less than 2 second cap refill is present. - Constitutional General appearance: Present: no acute distress - Labs CBC & Chem 7: 12/02/21 05:55 12/02/21 05:55 Labs: Abnormal Lab Results - Last 24 Hours (Table) 12/02/21 Range/Units 05:55 RBC 2.83 L (4.10-5.20) X 10*6/uL Hgb 9.1 L (12.0-15.0) g/dL Hct 28.0 L (37.2-46.3) % MCV 98.9 H (80.0-97.0) fL MCH 32.2 H (27.0-32.0) pg Plt Count 107 L (140-440) X 10*3/uL Immature Gran # 0.05 H (0.00-0.04) X 10*3/uL Assessment and Plan (1) Left ischial fracture Narrative/Plan: She will continue with routine orthopedic protocol including pain management, PT, DVT prophylaxis and medical management. Expect that she will transfer to ECF Saturday Current Visit: Yes Status: Acute Priority: Medium Code(s): S32.602A - UNSP FRACTURE OF LEFT ISCHIUM, INIT FOR CLOS FX SNOMED Code(s): 689616505 (2) Pubic ramus fracture Current Visit: Yes Status: Acute Priority: Medium Code(s): S32.599A - OTH FRACTURE OF UNSP PUBIS, INIT ENCNTR FOR CLOSED FRACTURE SNOMED Code(s): 00592793 Time with Patient: Less than 30
[2021-12-03 10:53] LABS: Basophils # (A) 0.04 X 10*3/uL (0.00-0.10); Basophils % (A) 0.6 %; Eosinophils # (A) 0.33 X 10*3/uL (0.04-0.35); Eosinophils % (A) 5.1 %; HCT 28.7 % (37.2-46.3); HGB 9.2 g/dL (12.0-15.0); Immature Grans, Automated 0.5 %; Lymphocytes # (A) 2.35 X 10*3/uL (0.90-5.00); Lymphocytes % (A) 36.6 %; MCH 31.6 pg (27.0-32.0); MCHC 32.1 g/dL (32.0-37.0); MCV 98.6 fL (80.0-97.0); Mean Platelet Volume 10.9 fL (9.5-12.2); Monocytes # (A) 0.63 X 10*3/uL (0.20-1.00); Monocytes % (A) 9.8 %; NRBC Per 100 WBC 0 /100 WBCS (0.0-0.0); Neutrophils # (A) 3.04 X 10*3/uL (1.80-7.70); Neutrophils % (A) 47.4 %; Platelet Count 119 X 10*3/uL (140-440); RBC 2.91 X 10*6/uL (4.10-5.20); RDW 12.3 % (11.5-14.5); WBC 6.42 X 10*3/uL (4.50-10.00)
[2021-12-03 14:00] LABS: African American GFR (CKD) 48.2 (60.0-200.0); Albumin 3.4 g/dL (3.8-4.9); Albumin/Globulin Ratio 1.85 (1.60-3.17); Anion Gap 10.9 mmol/L (10.00-18.00); BUN/Creat Ratio 17.86 Ratio (12.00-20.00); Blood Urea Nitrogen 20.9 mg/dL (9.0-27.0); Calcium 8.4 mg/dL (8.7-10.3); Carbon Dioxide 17.9 mmol/L (20.0-27.5); Globulin 1.9 g/dL (1.6-3.3); Non-African American GFR(CKD) 41.6 (60.0-200.0); Potassium 4.5 mmol/L (3.5-5.5); Total Bilirubin 0.6 mg/dL (0.30-1.20); Total Protein 5.3 g/dL (6.2-8.2)
--- NOTE | 2021-12-03 14:33 | P.PN ---
Subjective Progress Note Date: 12/03/21 Maggy Voss, is an 86-year-old female who presented to [facility] emergency room after sustaining a fall and having hip pain, patient states that she was walking up a few steps to her front door when she tripped and fell down, she denies any dizziness or loss of consciousness, she states that she hit her head on the cement, but did not lose consciousness, she was able to crawl into the house and called her son for help. She was evaluated in the emergency room vital examination on presentation revealed a temperature of 97.8 pulse 86 respiration 18 and blood pressure 157/63 pulse ox 98% on room air Laboratory data no labs were drawn in the emergency room Testing in the emergency room revealed computed tomography scan of the brain did not reveal any evidence of intracranial bleeding, computed tomography scan of the left hip revealed multiple ischial pubic rami fractures Patient was admitted to medical floor for further evaluation and treatment Past medical history is significant for history of hypertension, history of hyperlipidemia, history of coronary artery disease, history of gastroesophageal reflux disease, history of depression maintained on Zoloft On review of systems patient is alert and oriented 3 in no apparent distress she is complaining of generalized pain and pain in the left hip and left elbow otherwise she denies any complaints there is no fever or chills no headache or dizziness no chest pain no shortness of breath no cough no nausea or vomiting no abdominal pain no diarrhea no blood in the stools no burning with urination no frequency or urgency and no hematuria On 12/02/2021 patient was seen and examined on the medical floor she is alert and oriented 3 in no apparent distress there is no fever or chills no headache or dizziness no chest pain no shortness of breath no cough no nausea or vomiting no abdominal pain no diarrhea no burning with urination no frequency or urgency and no hematuria she is sitting up in a chair her pain is well-controlled. On 12/03/2021 patient was seen and examined on the medical floor she is alert and oriented 3 in no apparent distress there is no fever or chills no headache or dizziness no chest pain no shortness of breath no cough no nausea or vomiting no abdominal pain no diarrhea and no urinary symptoms. At this time continue with current management awaiting possible transfer to rehab in the next 1-2 days. Patient prefers to be in [facility] close to her family. Objective - Vital Signs Vital signs: Vital Signs Temp 97.8 F 12/03/21 13:31 Pulse 89 12/03/21 13:31 Resp 14 12/03/21 13:31 BP 111/56 12/03/21 13:31 Pulse Ox 95 12/03/21 13:31 FiO2 Intake & Output 12/02/21 12/03/21 12/03/21 18:59 06:59 18:59 Intake Total 888 Balance 888 Intake: Oral 888 Other: Voiding Method Bedside Commode Bedside Commode Bedpan Bedpan Diaper Diaper # Voids 3 1 - Exam In general patient is alert and oriented x 3 in no distress HEENT head normocephalic and atraumatic Neck is supple no JVD no goiter no lymphadenopathy no carotid bruit Chest examination is clear to auscultation no crackles no wheezing Cardiac exam reveals regular heart sounds S1 and S2 no gallops no murmurs Abdomen is soft nontender no organomegaly with normal bowel sounds Extremity exam reveals no edema no cyanosis or clubbing, injury with sutures on the left elbow Neurological examination reveals no gross focal deficits - Labs CBC & Chem 7: 12/03/21 06:50 12/03/21 06:50 Labs: Abnormal Lab Results - Last 24 Hours (Table) 12/03/21 12/03/21 Range/Units 06:50 06:50 RBC 2.91 L (4.10-5.20) X 10*6/uL Hgb 9.2 L (12.0-15.0) g/dL Hct 28.7 L (37.2-46.3) % MCV 98.6 H (80.0-97.0) fL Plt Count 119 L (140-440) X 10*3/uL Carbon Dioxide 17.9 L (20.0-27.5) mmol/L Est GFR (CKD-EPI)AfAm 48.2 L (60.0-200.0) Est GFR (CKD-EPI)NonAf 41.6 L (60.0-200.0) Calcium 8.4 L (8.7-10.3) mg/dL Total Protein 5.3 L (6.2-8.2) g/dL Albumin 3.4 L (3.8-4.9) g/dL Assessment and Plan Plan: Fall was evidence of multiple ischial and pubic rami fracture Underlying history of hypertension Underlying history of hyperlipidemia Underlying history of coronary artery disease Underlying history of gastroesophageal reflux disease Underlying history of depression At this time patient is admitted to medical floor, orthopedic surgery following CBC CMP and urine analysis were ordered Home medications reviewed and reordered For DVT prophylaxis subcu Lovenox For GI prophylaxis continue omeprazole Physical therapy and occupational therapy Patient will need rehab prior to going home
[2021-12-03] MEDS: HYDROcodone/APAP 10-325MG 1 EACH TAB PO PRN (18:23)
[2021-12-03] MEDS: ATORVASTATIN 10 MG TAB PO SCH (20:27)
[2021-12-03] MEDS: HYDROmorphone 0.5 MG/0.5 ML SYRINGE IVP PRN (20:27)
[2021-12-04] MEDS: HYDROcodone/APAP 10-325MG 1 EACH TAB PO PRN (06:21)
[2021-12-04 09:11] LABS: Basophils # (A) 0.04 X 10*3/uL (0.00-0.10); Basophils % (A) 0.6 %; Eosinophils # (A) 0.31 X 10*3/uL (0.04-0.35); Eosinophils % (A) 4.4 %; HCT 29.8 % (37.2-46.3); HGB 9.6 g/dL (12.0-15.0); Immature Grans, Automated 0.9 %; Lymphocytes # (A) 2.23 X 10*3/uL (0.90-5.00); Lymphocytes % (A) 31.7 %; MCH 31.7 pg (27.0-32.0); MCHC 32.2 g/dL (32.0-37.0); MCV 98.3 fL (80.0-97.0); Mean Platelet Volume 10.7 fL (9.5-12.2); Monocytes # (A) 0.67 X 10*3/uL (0.20-1.00); Monocytes % (A) 9.5 %; NRBC Per 100 WBC 0 /100 WBCS (0.0-0.0); Neutrophils # (A) 3.73 X 10*3/uL (1.80-7.70); Neutrophils % (A) 52.9 %; Platelet Count 184 X 10*3/uL (140-440); RBC 3.03 X 10*6/uL (4.10-5.20); RDW 12.7 % (11.5-14.5); WBC 7.04 X 10*3/uL (4.50-10.00)
[2021-12-04 09:30] LABS: African American GFR (CKD) 58.3 (60.0-200.0); Albumin 3.7 g/dL (3.8-4.9); Albumin/Globulin Ratio 1.85 (1.60-3.17); Anion Gap 9.1 mmol/L (10.00-18.00); BUN/Creat Ratio 18.8 Ratio (12.00-20.00); Blood Urea Nitrogen 18.8 mg/dL (9.0-27.0); Calcium 8.7 mg/dL (8.7-10.3); Carbon Dioxide 19.9 mmol/L (20.0-27.5); Non-African American GFR(CKD) 50.3 (60.0-200.0); Potassium 4.9 mmol/L (3.5-5.5); Total Bilirubin 0.7 mg/dL (0.30-1.20); Total Protein 5.7 g/dL (6.2-8.2)
[2021-12-04] MEDS: LOSARTAN 25 MG TAB PO SCH (09:50)
[2021-12-04] MEDS: ISOSORBIDE MONONITRATE ER 30 MG TAB.ER.24H PO SCH (09:50)
[2021-12-04] MEDS: amLODIPine 10 MG TAB PO SCH (09:50)
[2021-12-04] MEDS: ASPIRIN 81 MG PO SCH (09:50)
[2021-12-04] MEDS: CALCIUM CARBONATE 500 MG CHEWABLE PO SCH (09:50)
[2021-12-04] MEDS: ENOXAPARIN 30 MG/0.3 ML SYRINGE SQ SCH (09:51)
[2021-12-04] MEDS: CHOLECALCIFEROL 25 MCG (1000 IU) TABLET PO SCH (09:51)
[2021-12-04] MEDS: SERTRALINE 50 MG TAB PO SCH (09:51)
[2021-12-04] MEDS: PANTOPRAZOLE 40 MG TABLET PO SCH (09:51)
[2021-12-04] MEDS ORDERED: HYDROcodone/APAP 10-325MG 1 EACH TAB PO PRN (12:49)
--- NOTE | 2021-12-04 12:51 | P.DS ---
Providers Date of admission: 11/30/21 16:53 Expected date of discharge: 12/04/21 Attending physician: Wendy Harris DO Consults: 11/30/21 16:53 Consult Physician Urgent Consulting Provider: Cindy Berg Consult Reason/Comments: Medical management Do you want consulting provider notified?: Yes Primary care physician: Cindy Berg - Discharge Diagnosis(es) (1) Fall Current Visit: Yes Status: Acute (2) Left ischial fracture Current Visit: Yes Status: Acute Priority: Medium (3) Pubic ramus fracture Current Visit: Yes Status: Acute Priority: Medium Hospital Course: This is an 86 year old female who presented to the hospital post fall at home and sustained pubic rami and ischial fractures. The patient is doing well with physical therapy. Labs and vital signs are stable on the day of discharge. On the day of discharge, she is alert and oriented x3. There is a skin tear on the left elbow with sutures present. Exam of the right lower extremity reveals no pain upon palpation. Exam of the left lower extremity reveals no obvious deformity. There is pain upon palpation to the lateral left hip. There is minimal pain upon logrolling and any range of motion of the leg. Minimal pain to the left side on lateral compression of the pelvis bilaterally. No pain on AP compression. Bilateral calves are soft and nontender. Patient has good foot and ankle motion bilaterally. Neurological and circulatory status is intact. The patient is discharged to skilled rehab in good condition. Patient Condition at Discharge: Stable Plan - Discharge Summary Discharge Rx Participant: Yes New Discharge Prescriptions: New HYDROcodone/APAP 10-325MG [[place] 10-325] 1 tab PO Q6HR PRN #30 tab PRN Reason: Pain No Action Calcium Carbonate [Calcium] 600 mg PO DAILY Omeprazole 20 mg PO DAILY Isosorbide Mononitrate ER [Imdur] 30 mg PO DAILY Aspirin EC [Ecotrin Low Dose] 81 mg PO DAILY amLODIPine [Norvasc] 10 mg PO DAILY Diphenox-Atrop 2.5-0.025 mg [Lomotil] 1 tab PO BID PRN PRN Reason: Loose Stool Cholecalciferol [Vitamin D3 (25 Mcg = 1000 Iu)] 25 mcg PO DAILY Simvastatin [Zocor] 20 mg PO HS Sertraline [Zoloft] 50 mg PO DAILY Losartan Potassium [Cozaar] 12.5 mg PO DAILY HYDROcodone/APAP 10-325MG [[place] 10-325] 1 tab PO Q8HR PRN PRN Reason: Pain calcium polycarbophiL [Fibercon] 625 mg PO BID PRN PRN Reason: Constipation Discharge Medication List Aspirin EC [Ecotrin Low Dose] 81 mg PO DAILY 11/30/21 [History] Calcium Carbonate [Calcium] 600 mg PO DAILY 11/30/21 [History] Cholecalciferol [Vitamin D3 (25 Mcg = 1000 Iu)] 25 mcg PO DAILY 11/30/21 [History] Diphenox-Atrop 2.5-0.025 mg [Lomotil] 1 tab PO BID PRN 11/30/21 [History] HYDROcodone/APAP 10-325MG [[place] 10-325] 1 tab PO Q8HR PRN 11/30/21 [History] Isosorbide Mononitrate ER [Imdur] 30 mg PO DAILY 11/30/21 [History] Losartan Potassium [Cozaar] 12.5 mg PO DAILY 11/30/21 [History] Omeprazole 20 mg PO DAILY 11/30/21 [History] Sertraline [Zoloft] 50 mg PO DAILY 11/30/21 [History] Simvastatin [Zocor] 20 mg PO HS 11/30/21 [History] amLODIPine [Norvasc] 10 mg PO DAILY 11/30/21 [History] calcium polycarbophiL [Fibercon] 625 mg PO BID PRN 11/30/21 [History] HYDROcodone/APAP 10-325MG [[place] 10-325] 1 tab PO Q6HR PRN #30 tab 12/04/21 [Rx] Follow up Appointment(s)/Referral(s): Wendy Harris DO [Doctor of Osteopathic Medicine] - 12/20/21 10:50 am Cindy Berg MD [Primary Care Provider] - 1-2 days Activity/Diet/Wound Care/Special Instructions: Toe Touch weightbearing to the left lower extremity with a walker. Follow up with Dr. Harris in 2-3 weeks. Call [facility] with an questions or concerns, . Discharge Disposition: TRANSFER TO SNF/ECF
[2021-12-04 13:49] VITALS: BP 132/64; PULSE 90; RESP 18; TEMP 98.4
--- NOTE | 2021-12-04 16:09 | P.PN ---
Subjective Progress Note Date: 12/04/21 Maggy Voss, is an 86-year-old female who presented to [facility] emergency room after sustaining a fall and having hip pain, patient states that she was walking up a few steps to her front door when she tripped and fell down, she denies any dizziness or loss of consciousness, she states that she hit her head on the cement, but did not lose consciousness, she was able to crawl into the house and called her son for help. She was evaluated in the emergency room vital examination on presentation revealed a temperature of 97.8 pulse 86 respiration 18 and blood pressure 157/63 pulse ox 98% on room air Laboratory data no labs were drawn in the emergency room Testing in the emergency room revealed computed tomography scan of the brain did not reveal any evidence of intracranial bleeding, computed tomography scan of the left hip revealed multiple ischial pubic rami fractures Patient was admitted to medical floor for further evaluation and treatment Past medical history is significant for history of hypertension, history of hyperlipidemia, history of coronary artery disease, history of gastroesophageal reflux disease, history of depression maintained on Zoloft On review of systems patient is alert and oriented 3 in no apparent distress she is complaining of generalized pain and pain in the left hip and left elbow otherwise she denies any complaints there is no fever or chills no headache or dizziness no chest pain no shortness of breath no cough no nausea or vomiting no abdominal pain no diarrhea no blood in the stools no burning with urination no frequency or urgency and no hematuria On 12/02/2021 patient was seen and examined on the medical floor she is alert and oriented 3 in no apparent distress there is no fever or chills no headache or dizziness no chest pain no shortness of breath no cough no nausea or vomiting no abdominal pain no diarrhea no burning with urination no frequency or urgency and no hematuria she is sitting up in a chair her pain is well-controlled. On 12/03/2021 patient was seen and examined on the medical floor she is alert and oriented 3 in no apparent distress there is no fever or chills no headache or dizziness no chest pain no shortness of breath no cough no nausea or vomiting no abdominal pain no diarrhea and no urinary symptoms. At this time continue with current management awaiting possible transfer to rehab in the next 1-2 days. Patient prefers to be in [facility] close to her family. On 12/04/2021 patient was seen and examined she is alert and oriented 3 in no distress, she is still complaining of pain in the pelvic area especially when she tries to walk, otherwise she denies any complaints there is no fever or chills no headache or dizziness no chest pain no shortness of breath no cough no nausea or vomiting no abdominal pain no diarrhea and no urinary symptoms. Plan is for transfer to rehab today if bed is available. Objective - Vital Signs Vital signs: Vital Signs Temp 97.9 F 12/04/21 07:36 Pulse 75 12/04/21 07:36 Resp 17 12/04/21 07:36 BP 113/55 12/04/21 07:36 Pulse Ox 98 12/04/21 07:36 FiO2 Intake & Output 12/03/21 12/04/21 12/04/21 18:59 06:59 18:59 Intake Total 1080 Balance 1080 Intake: Oral 1080 Other: Voiding Method Bedside Commode Bedside Commode Bedpan Bedpan Diaper Diaper # Voids 2 1 - Exam In general patient is alert and oriented x 3 in no distress HEENT head normocephalic and atraumatic Neck is supple no JVD no goiter no lymphadenopathy no carotid bruit Chest examination is clear to auscultation no crackles no wheezing Cardiac exam reveals regular heart sounds S1 and S2 no gallops no murmurs Abdomen is soft nontender no organomegaly with normal bowel sounds Extremity exam reveals no edema no cyanosis or clubbing, injury with sutures on the left elbow Neurological examination reveals no gross focal deficits - Labs CBC & Chem 7: 12/04/21 06:17 12/04/21 06:17 Labs: Abnormal Lab Results - Last 24 Hours (Table) 12/03/21 12/03/21 12/04/21 Range/Units 06:50 06:50 06:17 RBC 2.91 L 3.03 L (4.10-5.20) X 10*6/uL Hgb 9.2 L 9.6 L (12.0-15.0) g/dL Hct 28.7 L 29.8 L (37.2-46.3) % MCV 98.6 H 98.3 H (80.0-97.0) fL Plt Count 119 L (140-440) X 10*3/uL Immature Gran # 0.06 H (0.00-0.04) X 10*3/uL Carbon Dioxide 17.9 L (20.0-27.5) mmol/L Anion Gap (10.00-18.00) mmol/L Est GFR (CKD-EPI)AfAm 48.2 L (60.0-200.0) Est GFR (CKD-EPI)NonAf 41.6 L (60.0-200.0) Calcium 8.4 L (8.7-10.3) mg/dL Total Protein 5.3 L (6.2-8.2) g/dL Albumin 3.4 L (3.8-4.9) g/dL 12/04/21 Range/Units 06:17 RBC (4.10-5.20) X 10*6/uL Hgb (12.0-15.0) g/dL Hct (37.2-46.3) % MCV (80.0-97.0) fL Plt Count (140-440) X 10*3/uL Immature Gran # (0.00-0.04) X 10*3/uL Carbon Dioxide 19.9 L (20.0-27.5) mmol/L Anion Gap 9.10 L (10.00-18.00) mmol/L Est GFR (CKD-EPI)AfAm 58.3 L (60.0-200.0) Est GFR (CKD-EPI)NonAf 50.3 L (60.0-200.0) Calcium (8.7-10.3) mg/dL Total Protein 5.7 L (6.2-8.2) g/dL Albumin 3.7 L (3.8-4.9) g/dL Assessment and Plan Plan: Fall was evidence of multiple ischial and pubic rami fracture Underlying history of hypertension Underlying history of hyperlipidemia Underlying history of coronary artery disease Underlying history of gastroesophageal reflux disease Underlying history of depression At this time patient is admitted to medical floor, orthopedic surgery following CBC CMP and urine analysis were ordered Home medications reviewed and reordered For DVT prophylaxis subcu Lovenox For GI prophylaxis continue omeprazole Physical therapy and occupational therapy Patient will need rehab prior to going home
[2021-12-05] MEDS ORDERED: ENOXAPARIN 40 MG/0.4 ML SYRINGE SQ SCH (09:00)
== END 2021-12-04 15:13 | DRG 536 ==
LOC: EC 13:50 → 4SSUR 16:53
PROVIDERS: ADMIT Orthopaedic Surgery Hand Surgery; ATTEND Orthopaedic Surgery Hand Surgery
PROC: 0JQH3ZZ Repair Left Lower Arm Subcutaneous Tissue and Fascia, Percutaneous Approach (ICD-10-PCS; principal; 2021-11-30)
DX: S32.602A Unspecified fracture of left ischium, initial encounter for closed fracture (principal); S32.599A Other specified fracture of unspecified pubis, initial encounter for closed fracture; E78.5 Hyperlipidemia, unspecified; F41.9 Anxiety disorder, unspecified; G89.29 Other chronic pain; G47.30 Sleep apnea, unspecified; F32.A Depression, unspecified; K21.9 Gastro-esophageal reflux disease without esophagitis; I10 Essential (primary) hypertension; I25.10 Atherosclerotic heart disease of native coronary artery without angina pectoris; S51.012A Laceration without foreign body of left elbow, initial encounter; W10.9XXA Fall (on) (from) unspecified stairs and steps, initial encounter; Y92.009 Unspecified place in unspecified non-institutional (private) residence as the place of occurrence of the external cause; Y93.01 Activity, walking, marching and hiking; Z63.4 Disappearance and death of family member; Z60.2 Problems related to living alone; Z79.82 Long term (current) use of aspirin; Z79.899 Other long term (current) drug therapy; Z87.891 Personal history of nicotine dependence; Z20.822 Contact with and (suspected) exposure to COVID-19
CPT/HCPCS: 12013; 70450; 72125; 73502; 80053; 81003; 85025; 87635; 90471; 90715; 93005; 96374; 96375; 99285